=== PATIENT | male | born 1935 | race Caucasian/White ===

== ENCOUNTER 2021-02-02 12:29 | Emergency (ER) | payer MEDICARE, SELFPAY ==
--- NOTE | 2021-02-02 12:37 | HMH.EDGENADL ---
ED Disposition Clinical Impression: Ecchymosis, Hypertensive urgency Disposition: Home, Self-Care Condition on Discharge: Good Additional Instructions: Follow-up with your regular doctor for further work-up and evaluation of your bruising. Make sure you take your blood pressure medication as directed and follow-up with your regular doctor for further evaluation of your blood pressure. Referrals: Derek Castillo MD [Primary Care Provider] - 3 days Time of Disposition: 14:58 - Critical Care Critical Care Time: No Attestation: On , the high probability of a clinically significant, sudden or life threatening deterioration of the following system(s) required my full and direct attention, intervention and personal management. The time I documented below is in addition to time spent performing reported procedures but includes the following listed in this critical care notation. Medical Decision Making - Medical Records Medical records reviewed: Yes: I reviewed the patient's medical records. - Ephraim Inquiry Pt receiving controlled substance: No Vital Signs: 02/02/21 12:40 Temperature 98.0 F Temperature Source Oral Pulse Rate [Left] 85 Respiratory Rate 16 Blood Pressure [Left Arm] 210/99 H Blood Pressure Mean [Left Arm] 136 Blood Pressure Source [Left Arm] Automatic Cuff Blood Pressure Position [Left Arm] Sitting 02 Sat by Pulse Oximetry 97 Oxygen Delivery Method Room Air - Lab Data Lab results reviewed: Yes: I reviewed the patient's lab results. Lab Results 02/02/21 13:00: WBC 5.9, RBC 4.74, Hgb 14.1, Hct 41.0 L, MCV 86.6, MCH 29.7, MCHC 34.3, RDW 14.3, Plt Count 203, MPV 8.5, Neut % (Auto) 61.4, Lymph % (Auto) 24.5, [place] % (Auto) 9.2, Eos % (Auto) 4.4, Baso % (Auto) 0.5, Neut # (Auto) 3.6, Lymph # (Auto) 1.4, [place] # (Auto) 0.5, Eos # (Auto) 0.3, Baso # (Auto) 0.0 02/02/21 13:00: PT 11.3, INR 0.95 02/02/21 13:00: Urine Color Yellow, Urine Appearance Clear, Urine pH 6.5, Ur Specific [place] 1.025, Urine Protein Trace, Urine Glucose (UA) Negative, Urine Ketones Negative, Urine Blood Negative, Urine Nitrate Negative, Urine Bilirubin Negative, Urine Urobilinogen 1.0, Ur Leukocyte Esterase Negative, Urine WBC 3-5, Ur Squamous Epith Cells 3-5 02/02/21 13:00: Sodium 140, Potassium 4.5, Chloride 103, Carbon Dioxide 33 H, Anion Gap 8.5, BUN 19, Creatinine 1.20, Estimated Creat Clear 76, Estimated GFR 58 L, Est GFR ( Amer) 70, Glucose 119 H, Calcium 8.6, Total Bilirubin 0.7, AST 31, ALT 17, Alkaline Phosphatase 55, Total Protein 6.9, Albumin 4.4, Globulin 2.5, Albumin/Globulin Ratio 1.8 Result diagrams: 02/02/21 13:00 02/02/21 13:00 Orders (Tests/Meds): ED MEDICATIONS Discontinued Medications Generic Name Dose Route Start Last Admin Trade Name Adebayoq PRN Reason Stop Dose Admin Clonidine HCl 0.1 mg 02/02/21 14:20 02/02/21 14:23 Clonidine 0.1mg Tablet PO 02/02/21 14:21 0.1 mg ONCE ONE Administration Medical Decision Narrative: 85yo M evaluated for large of ecchymosis. Areas are nontender to palpate. Patient is in no acute distress on initial evaluation. CBC, CMP, urinalysis are ordered. CBC is unremarkable shows a normal platelet count. Metabolic panel is benign and shows normal liver functions. PT/INR is within normal limits. Patient's urine shows no signs of hematuria. Patient is also noted to have hypertensive urgency on initial evaluation. He is treated with clonidine 0.1 mg p.o. Patient's blood pressure is improved with treatment and he is appropriate stable for discharge home. Patient is encouraged to follow-up with his PCP for further evaluation of his ecchymosis. General Adult HPI - General Stated complaint: right arm discolored Time Seen by Provider: 02/02/21 12:37 Mode of Arrival: Ambulatory - History of Present Illness HPI narrative: 85yo M presents the emergency department with concern for large bruise to his right arm. Patient denies any fall. Patient reports he does n
[2021-02-02 12:40] VITALS: BP 210/99; PULSE 85; RESP 16; TEMP 36.7; O2SAT 97; BMI 31.0
[2021-02-02 13:10] LABS: Microscopic, Urine URINE MICROSCOPIC (MICROSCOPIC)
[2021-02-02 13:16] LABS: Appearance,Urine CLEAR (Clear); Bilirubin,Urine Negative (Negative); Blood, Urine Negative (Negative); Color,Urine YELLOW (Yellow); Glucose,Urine (UA) Negative (Negative); Ketones,Urine Negative (Negative); Leukocyte Esterase,Urine Negative (Negative); Nitrate,Urine Negative (Negative); PH,Urine 6.5 (5.0-8.5); Protein,Urine TRACE (Negative); Specific Gravity, Urine 1.025 (1.005-1.030)
[2021-02-02 13:19] LABS: Basophils % 0.5 % (0.1-2.0); Eosinophils # 0.3 K/mm3 (0.0-0.4); Eosinophils % 4.4 % (0.1-12.0); Hemoglobin 14.1 g/dL (14.1-18.0); Lymphocytes # 1.4 K/mm3 (0.7-4.5); Lymphocytes % 24.5 % (10-50); Mean Corpuscular HGB Conc 34.3 g/dL (31.8-35.4); Mean Corpuscular Hemoglobin 29.7 pg (27.0-31.2); Mean Corpuscular Volume 86.6 fl (80-94); Mean Platelet Volume 8.5 fl (7.4-10.4); Monocytes # 0.5 K/mm3 (0.1-1.0); Monocytes % 9.2 % (1.7-9.3); Neutrophils # 3.6 K/mm3 (1.8-7.8); Neutrophils % 61.4 % (37.0-80.0); Platelet Count 203 K/mm3 (142-424); Red Blood Count 4.74 M/mm3 (4.60-6.20); Red Cell Distribution Width 14.3 % (11.5-17.5); White Blood Count 5.9 K/mm3 (4.8-10.8)
[2021-02-02 13:34] LABS: INR 0.95 (0.9-1.1); Prothrombin Time 11.3 seconds (10.1-12.5)
[2021-02-02 14:06] LABS: Alanine Aminotransferase 17 U/L (12-78); Albumin Level 4.4 g/dl (3.5-5.0); Albumin/Globulin Ratio 1.8 (1.1-1.8); Alkaline Phosphatase 55 U/L (38-126); Anion Gap 8.5 mEq/L (5-15); Aspartate Amino Transferase 31 U/L (17-59); Bilirubin,Total 0.7 mg/dl (0.2-1.3); Blood Urea Nitrogen 19 mg/dl (9-20); Calcium 8.6 mg/dl (8.4-10.2); Carbon Dioxide 33 mmol/L (22.0-30.0); Chloride 103 mmol/L (98-107); Creatinine Clearance Estimated 76 mL/min (50-200); Estimated Glomerular Filt Rate 58 ml/min (>60); GFR (African American) 70 ML/MIN (>60); Globulin 2.5 g/dL (1.3-3.2); Glucose 119 mg/dl (74-100); Potassium 4.5 mmoL/L (3.5-5.1); Sodium 140 mmol/L (136-145); Total Protein,Serum 6.9 g/dl (6.3-8.2)
[2021-02-02 15:20] VITALS: BP 177/84; PULSE 56; RESP 16; TEMP 36.6; O2SAT 96
== END 2021-02-02 15:21 | disposition home or self-care (01) ==
PROVIDERS: Emergency Provider Family Medicine; PCP Family Medicine
DX: I16.0 Hypertensive urgency (principal); R58 Hemorrhage, not elsewhere classified
CPT/HCPCS: 80053; 81001; 85025; 85610; 99282

== ENCOUNTER → 2021-10-25 13:40 | Outpatient (CLI) | payer MEDICARE, SELFPAY ==
--- NOTE | 2021-10-25 | CA_ITS ---
FINAL REPORT TECHNIQUE: Color Doppler, duplex Doppler and stephenson scale sonography of the bilateral neck arterial vasculature was performed. Velocities were measured in the carotid arteries. Stenosis evaluation based on the validated velocity criteria. CLINICAL HISTORY: .Near syncope, CAD, Dizziness FINDINGS: The peak systolic velocity of the right common carotid artery is 44 cm/s. The peak systolic velocity of the right internal carotid artery is 68 cm/s and end diastolic velocity 21 cm/s. The ICA/CCA ratio is 1.9. A mild amount of plaque is present. The right external carotid artery is patent. The right vertebral artery is patent with antegrade flow. The peak systolic velocity of the left common carotid artery is 52 cm/s. The peak systolic velocity of the left internal carotid artery is 89 cm/s and end diastolic velocity 28 cm/s. The ICA/CCA ratio is 2.0. A mild amount of plaque is present. The left external carotid artery is patent.The left vertebral artery is patent with antegrade flow. IMPRESSION: Less than 50% bilateral carotid stenosis. Bilateral patent vertebral arteries with antegrade flow. Reviewed, Interpreted and Dictated by Davey Harvey III, MD Transcribed by Reshma Carrion Authenticated by Davey Harvey III, MD on 10/25/2021 03:28:[address] [facility]
== END ==
PROVIDERS: PCP Family Medicine; Visit Provider Family Medicine
DX: R55 Syncope and collapse (principal)
CPT/HCPCS: 93880

== ENCOUNTER 2022-03-14 10:19 | Emergency (ER) | payer MEDICARE, SELFPAY ==
[2022-03-14 10:20] VITALS: BP 155/66; PULSE 57; RESP 18; TEMP 36.8; O2SAT 97; BMI 27.3
--- NOTE | 2022-03-14 10:28 | PC.NURSE ---
pt assisted into a gown, warm blanket given
--- NOTE | 2022-03-14 10:38 | HMH.EDEXTP ---
ED Disposition Clinical Impression: Cellulitis Qualifiers: Site of cellulitis: extremity Site of cellulitis of extremity: lower extremity Laterality: unspecified laterality Qualified Code(s): L03.119 - Cellulitis of unspecified part of limb Disposition: Home, Self-Care Condition on Discharge: Fair Instructions: Cellulitis Additional Instructions: Return to the emergency department immediately if you feel worse in any way. Follow-up with your primary care doctor in about 3 to 4 days if you do not notice any improvement. Prescriptions: cephALEXin [Cephalexin 500mg Tab] 500 mg PO Q6H #40 tab Transmission Status: Pending to [facility] #[id number] Referrals: Derek Castillo MD [Primary Care Provider] - - Critical Care Critical Care Time: No Attestation: On 03/14/22, the high probability of a clinically significant, sudden or life threatening deterioration of the following system(s) required my full and direct attention, intervention and personal management. The time I documented below is in addition to time spent performing reported procedures but includes the following listed in this critical care notation. Medical Decision Making - Medical Records Medical records reviewed: Yes: I reviewed the patient's medical records. - Ephraim Inquiry Pt receiving controlled substance: No Vital Signs: 03/14/22 10:20 03/14/22 11:15 Temperature 98.2 F Temperature Source Oral Pulse Rate 55 L Pulse Rate [Right Radial] 57 L Respiratory Rate 18 15 Blood Pressure [Right Arm] 155/66 H Blood Pressure Mean [Right Arm] 95 Blood Pressure Source [Right Arm] Automatic Cuff Blood Pressure Position [Right Arm] Sitting 02 Sat by Pulse Oximetry 97 96 Oxygen Delivery Method Room Air Room Air - Lab Data Lab results reviewed: Yes: I reviewed the patient's lab results. Lab Results 03/14/22 11:00: WBC 6.5, RBC 4.64, Hgb 13.9 L, Hct 42.2, MCV 91.0, MCH 30.0, MCHC 33.0, RDW 13.9, Plt Count 217, MPV 9.1, Neut % (Auto) 65.4, Lymph % (Auto) 20.4, [place] % (Auto) 9.7 H, Eos % (Auto) 3.2, Baso % (Auto) 1.3, Neut # (Auto) 4.3, Lymph # (Auto) 1.3, [place] # (Auto) 0.6, Eos # (Auto) 0.2, Baso # (Auto) 0.1 03/14/22 11:00: Sodium 138, Potassium 3.5, Chloride 102, Carbon Dioxide 30, Anion Gap 9.5, BUN 26 H, Creatinine 1.10, Estimated Creat Clear 72, Estimated GFR 64, Est GFR ( Amer) 77, Glucose 104 H, Calcium 9.1, Total Bilirubin 0.3, AST 29, ALT 20, Alkaline Phosphatase 69, NT-Pro-B Natriuret Pep 220, Total Protein 7.0, Albumin 4.2, Globulin 2.8, Albumin/Globulin Ratio 1.5 03/14/22 11:00: Lactate 0.8 Result diagrams: 03/14/22 11:00 03/14/22 11:00 Orders (Tests/Meds): ED MEDICATIONS Generic Name Dose Route Start Last Admin Trade Name Freq PRN Reason Stop Dose Admin Piperacillin Sod/Tazobactam 50 mls @ 100 mls/hr 03/14/22 10:45 03/14/22 11:24 Sod 3.375 gm/ Sodium Chloride IV 03/28/22 10:44 100 mls/hr Q8H BENJAMÍN Administration Sodium Chloride 10 ml 03/14/22 10:46 Sodium Chloride 0.9% 10ml Flush Syringe IV 04/13/22 10:45 NEEDED PRN Maintain IV Site ORDERS Category Date Time Status PT/PTT Stat Lab 03/14/22 11:00 Received Blood Culture Stat Micro 03/14/22 11:07 Received Medical Decision Narrative: The patient's work-up in the emergency department did not reveal any life-threatening or acutely dangerous conditions. The patient's renal function is normal. His glucose is almost normal. His white cell count is also normal. I feel that the patient can be safely discharged home with oral antibiotics. I have instructed the patient to follow-up with his primary care doctor in about 3 to 4 days. Extremity Problem HPI - General Stated complaint: bilateral leg pain Time Seen by Provider: 03/14/22 10:38 Mode of Arrival: Ambulatory Source of Information: Patient - History of Present Illness HPI Narrative: The patient presents to the emergency department complaining of bilateral foot pain. Alfonso
--- NOTE | 2022-03-14 11:08 | PC.NURSE ---
contacted pharmacy for zosyn mixing, spoke with dari, states they will get it ready and send it down
[2022-03-14 11:15] VITALS: PULSE 55; RESP 15; O2SAT 96
[2022-03-14 11:21] LABS: Basophils # 0.1 K/mm3 (0-0.2); Basophils % 1.3 % (0.1-2.0); Eosinophils # 0.2 K/mm3 (0.0-0.4); Eosinophils % 3.2 % (0.1-12.0); Hematocrit 42.2 % (42.0-52.0); Hemoglobin 13.9 g/dL (14.1-18.0); Lymphocytes # 1.3 K/mm3 (0.7-4.5); Lymphocytes % 20.4 % (10-50); Mean Platelet Volume 9.1 fl (7.4-10.4); Monocytes # 0.6 K/mm3 (0.1-1.0); Monocytes % 9.7 % (1.7-9.3); Neutrophils # 4.3 K/mm3 (1.8-7.8); Neutrophils % 65.4 % (37.0-80.0); Platelet Count 217 K/mm3 (142-424); Red Blood Count 4.64 M/mm3 (4.60-6.20); Red Cell Distribution Width 13.9 % (11.5-17.5); White Blood Count 6.5 K/mm3 (4.8-10.8)
[2022-03-14 11:24] LABS: Alanine Aminotransferase 20 U/L (12-78); Albumin Level 4.2 g/dl (3.5-5.0); Albumin/Globulin Ratio 1.5 (1.1-1.8); Alkaline Phosphatase 69 U/L (38-126); Anion Gap 9.5 mEq/L (5-15); Aspartate Amino Transferase 29 U/L (17-59); Bilirubin,Total 0.3 mg/dl (0.2-1.3); Blood Urea Nitrogen 26 mg/dl (9-20); Calcium 9.1 mg/dl (8.4-10.2); Carbon Dioxide 30 mmol/L (22.0-30.0); Chloride 102 mmol/L (98-107); Creatinine Clearance Estimated 72 mL/min (50-200); Estimated Glomerular Filt Rate 64 ml/min (>60); GFR (African American) 77 ML/MIN (>60); Globulin 2.8 g/dL (1.3-3.2); Glucose 104 mg/dl (74-100); Potassium 3.5 mmoL/L (3.5-5.1); Sodium 138 mmol/L (136-145)
[2022-03-14 11:25] LABS: Lactic Acid 0.8 mmol/L (0.7-2.1)
--- NOTE | 2022-03-14 11:26 | PC.NURSE ---
pt states no needs at this time, notified him we are awaiting blood test results. Will continue to monitor
[2022-03-14 11:30] VITALS: BP 145/69; PULSE 52; O2SAT 97
[2022-03-14 11:34] LABS: NT Pro Brain Natriuretic Pep. 220 pg/mL (0-450)
[2022-03-14 11:40] LABS: Activated Partial Thrombo Time 34.9 seconds (22.8-30.6); INR 1.06 (0.9-1.1); Prothrombin Time 11.9 seconds (10.1-12.5)
[2022-03-14 12:00] VITALS: BP 137/67; PULSE 55; O2SAT 97
[2022-03-14 12:30] VITALS: BP 152/69; PULSE 54; RESP 18; O2SAT 97
[2022-03-14 12:42] VITALS: BP 152/69; PULSE 54; RESP 18; TEMP 36.8; O2SAT 97
== END 2022-03-14 12:42 | disposition home or self-care (01) ==
PROVIDERS: Emergency Provider Emergency Medicine; PCP Family Medicine
DX: L03.116 Cellulitis of left lower limb (principal); L03.115 Cellulitis of right lower limb
CPT/HCPCS: 80053; 83605; 83880; 85025; 85610; 85730; 87040; 96365; 99284; J2543

== ENCOUNTER 2023-12-28 16:49 | Emergency (ER) | payer MEDICARE, SELFPAY ==
[2023-12-28 16:51] VITALS: BP 187/72; PULSE 63; RESP 13; TEMP 36.7; O2SAT 98; BMI 29.0
--- NOTE | 2023-12-28 17:18 | XR_ITS ---
PROCEDURE INFORMATION: Exam: XR Right Foot Exam date and time: 12/28/2023 5:34 PM Age: 88 years old Clinical indication: Injury or trauma; Fall; Sprain or strain; Foot; Right; Additional info: Fall injury TECHNIQUE: Imaging protocol: Radiologic exam of the right foot. Views: 3 or more views. COMPARISON: No relevant prior studies available. FINDINGS: Bones/joints: No acute fracture. Mild hallux valgus. Soft tissues: Normal. Other findings: Mild hammertoe deformities. IMPRESSION: No evidence for acute fracture.
--- NOTE | 2023-12-28 17:18 | XR_ITS ---
PROCEDURE INFORMATION: Exam: XR Right Knee Exam date and time: 12/28/2023 5:40 PM Age: 88 years old Clinical indication: Injury or trauma; Fall; Sprain or strain; Patella or knee; Right; Additional info: Fall, pain TECHNIQUE: Imaging protocol: Radiologic exam of the right knee. Views: 3 views. COMPARISON: CR XR TIBIA FIBULA RT 2V 12/28/2023 5:38 PM FINDINGS: Bones/joints: Tiny suprapatellar joint effusion. No acute fracture. Soft tissues: Normal. IMPRESSION: 1. No evidence for acute fracture. 2. Tiny suprapatellar joint effusion.
--- NOTE | 2023-12-28 17:18 | XR_ITS ---
PROCEDURE INFORMATION: Exam: XR Right Tibia and Fibula Exam date and time: 12/28/2023 5:38 PM Age: 88 years old Clinical indication: Injury or trauma; Fall; Sprain or strain; Lower leg; Right; Additional info: Fall injury TECHNIQUE: Imaging protocol: Radiologic exam of the right tibia and fibula. Views: 2 views. COMPARISON: CR XR FOOT RT MIN 3V 12/28/2023 5:34 PM FINDINGS: Bones/joints: No acute fracture. Soft tissues: Normal. IMPRESSION: No evidence for acute fracture.
--- NOTE | 2023-12-28 17:20 | HMH.EDGENADL ---
Discharge Plan Disposition Patient Disposition: Home, Self-Care Prescriptions Prescriptions: No Action cephalexin 500 MG tablet 500 mg PO Q6H Qty: 40 0RF Referrals Follow up/Referrals: Derek Castillo MD [Primary Care Provider] - See instructions Sudeep Pierson DO [Staff Physician] - See instructions Activity Restrictions/Add. Instructions Additional Instructions/Restrictions: There is a small effusion or swelling in your knee. No evidence of any fractures or dislocations. It is possible you have had a ligamental or meniscal injury that may require an outpatient MRI. For that reason please follow-up with Dr. Pierson if you are not improving in 1 to 2 weeks. Clinical Impressions Clinical Impression: Strain of knee and leg, right Discharge ED Provider: Jourdan Fleming General Adult HPI General Chief complaint: Fall Stated complaint: AO fall 12/21 right knee pain Time Seen by Provider: 12/28/23 17:16 Mode of Arrival: Ambulatory Source of Information: Patient Limitations: No Limitations Description of Symptoms (Recalled from ER Triage Doc. by RN): pt presents to ED with c/o right knee pain. pt reports that he tripped over his feet while walking to his car, pt had a fall and his right knee hit the ground. no blood thinners taken by pt. pt reports no pain anywhere else. History of Present Illness HPI narrative: Patient is an 88-year-old male present today with right knee pain. States that he tripped twisted his knee and fell directly onto it. He has pain from his knee radiating down to his right foot. States majority of his pain is overlying the patella. States it is mildly swollen. Denies any injuries elsewhere denies any syncopal episodes tender. Related Data Previous Rx's Medication Instructions Recorded cephalexin 500 mg tablet 500 mg PO Q6H #40 tabs 03/14/22 Allergies Allergy/AdvReac Type Severity Reaction Status Date / Time No Known Allergies Allergy Unverified 09/01/17 14:26 [facility] Disclaimer: The information contained in this section may have been updated after the patient was seen, as this information can be updated by other users. Social History Smoking Status: Former smoker alcohol intake: never current occupational status: other Travel in the last 8 weeks: None ROS Obtained: Yes All systems reviewed & no additional complaints except as documented Physical Exam General General appearance: alert and in no apparent distress Respiratory Respiratory exam: Present normal lung sounds bilaterally Cardiovascular Cardiovascular exam: Present regular rate and normal rhythm Extremities Exam Extremities exam: Present other (Moderate right knee effusion ligamental exam appears tight and normal neurovascular intact he has does have tenderness throughout his right knee tib-fib ankle and foot area no localized swelling anywhere outside of the knee) Neurological Exam Neurological exam: Present alert and oriented X3 Medical Decision Making Ephraim Inquiry Pt receiving controlled substance: No Vital Signs: 12/28/23 16:51 Temperature 98.0 F Temperature Source Oral Pulse Rate [Left Radial] 63 Respiratory Rate 13 Blood Pressure [Right Arm] 187/72 H Blood Pressure Mean [Right Arm] 110 02 Sat by Pulse Oximetry 98 Oxygen Delivery Method Room Air Orders (Tests/Meds): ORDERS Category Date Time Status Fibula/tibia XR right 2 views [XR tibia fibula RT 2V] Exams 12/28/23 17:18 Completed Stat Foot XR right minimum 3 views [XR foot RT min 3V] Stat Exams 12/28/23 17:18 Completed Knee XR right 3 views [XR knee RT 3V] Stat Exams 12/28/23 17:18 Completed Medical Decision Narrative: 88-year-old male presents today with right knee injury and some pain radiating down to his right lower extremity will get plain films from the knee down to the foot. Exam is largely normal aside from some localized pain in the knee with regards to tenderness and a small to moderate-sized joint effusion clinically. Possibly as a ligamental or an internal derangement we will get plain films and have him referred to orthopedic surgery after reassessment. X-rays performed which I personally interpreted which show no acute fracture or dislocation. Patient able to ambulate without significant difficulty he will follow-up with orthopedic surgery for possible outpatient MRI if he does not have any improvement in symptoms. Supportive care discussed. Critical Care Critical Care Time Critical Care Time: No
[2023-12-28 19:06] VITALS: BP 163/85; PULSE 68; RESP 17; TEMP 36.7; O2SAT 98
== END 2023-12-28 19:07 | disposition home or self-care (01) ==
PROVIDERS: Emergency Provider Student in an Organized Health Care Education/Training Program; PCP Family Medicine
DX: M25.561 Pain in right knee (principal); S86.911A Strain of unspecified muscle(s) and tendon(s) at lower leg level, right leg, initial encounter; M25.461 Effusion, right knee; X50.1XXA Overexertion from prolonged static or awkward postures, initial encounter; Z87.891 Personal history of nicotine dependence
CPT/HCPCS: 73562; 73590; 73630; 99283